=== PATIENT | male | born 1980 | race Caucasian/White ===

== ENCOUNTER 2016-10-13 13:56 | Emergency (ER) | payer MEDICAID, OTHER ==
[~2016-10-13] VITALS: Ht 175.3 cm; Wt 125.0 kg
[2016-10-13 16:49] VITALS: BP 149/95
== END 2016-10-13 19:07 | disposition home or self-care (01) ==
LOC: ER 16:46
DX: S93.402A Sprain of unspecified ligament of left ankle, initial encounter (principal); F17.210 Nicotine dependence, cigarettes, uncomplicated; Z71.6 Tobacco abuse counseling; X50.1XXA Overexertion from prolonged static or awkward postures, initial encounter; Y93.89 Activity, other specified; Y92.89 Other specified places as the place of occurrence of the external cause; Y99.8 Other external cause status
CPT/HCPCS: 73610; 99284; 99406

== ENCOUNTER 2017-12-10 11:49 | Emergency (ER) | payer MEDICAID, OTHER ==
[~2017-12-10] VITALS: Ht 172.7 cm; Wt 127.8 kg
[2017-12-10 12:30] VITALS: BP 147/93
[2017-12-10] MEDS ORDERED: FLUORESCEIN SODIUM 1MG/STRIP OP ONE (12:45)
[2017-12-10] MEDS ORDERED: TETRACAINE 0.5% OPHTH DROPS 4ML OP ONE (12:45)
== END 2017-12-10 15:33 | disposition home or self-care (01) ==
LOC: ER 13:00
DX: S00.11XA Contusion of right eyelid and periocular area, initial encounter (principal); F17.200 Nicotine dependence, unspecified, uncomplicated; W22.8XXA Striking against or struck by other objects, initial encounter; Y93.89 Activity, other specified; Y92.89 Other specified places as the place of occurrence of the external cause; Y99.8 Other external cause status; Z98.890 Other specified postprocedural states
CPT/HCPCS: 99283; X7700

== ENCOUNTER 2019-05-15 09:49 | Emergency (ER) | payer MEDICAID, OTHER ==
[~2019-05-15] VITALS: Ht 172.7 cm; Wt 120.0 kg
[2019-05-15 11:34] LABS: CLARITY URINE CLEAR (CLEAR); COLOR URINE YELLOW (YELLOW); KETONES URINE NEGATIVE (NEGATIVE); LEUKOCYTE ESTERASE URINE NEGATIVE (NEGATIVE); NITRITE URINE NEGATIVE (NEGATIVE); OCCULT BLOOD URINE NEGATIVE (NEGATIVE); PH URINE 5.5 (4.5-8.0); PROTEIN URINE NEGATIVE (NEGATIVE); SPECIFIC GRAVITY URINE 1.026 (1.005-1.030)
[2019-05-15 11:54] LABS: BASOPHILS % 0.6 % (0.0-2.0); EOSINOPHILS % 3.9 % (0.0-5.0); HEMOGLOBIN. 15.7 g/dL (14.0-18.0); MEAN CORPUSCULAR HEMOGLOBIN 31.7 pg (28.0-32.0); MEAN CORPUSCULAR VOLUME 92.9 fL (80.0-94.0); MEAN PLATELET VOLUME 9.5 fl (7.4-10.4); MONOCYTES % 4.8 % (2.0-8.0); NEUTROPHILS % 68.7 % (40.0-76.0); PLATELET 218 x1000/uL (130-400); RED BLOOD CELL COUNT 4.96 mill/uL (4.7-6.1)
[2019-05-15 11:57] LABS: INR 0.9; PROTHROMBIN TIME 10.1 sec (9.6-11.0)
[2019-05-15 12:08] LABS: CHLORIDE 107 mEq/L (98-107)
[2019-05-15] MEDS ORDERED: ACETAMINOPHEN 325MG TABLET PO ONE (12:30)
[2019-05-15] MEDS ORDERED: ONDANSETRON HCL 4MG TABLET PO ONE (12:30)
[2019-05-15 12:42] VITALS: BP 135/85
== END 2019-05-15 12:46 | disposition home or self-care (01) ==
LOC: ER 09:49
DX: R10.32 Left lower quadrant pain (principal); R03.0 Elevated blood-pressure reading, without diagnosis of hypertension
CPT/HCPCS: 36415; 74176; 80053; 81003; 83690; 85025; 85610; 99284; Q0162

== ENCOUNTER 2019-09-25 20:40 | Emergency (ER) | payer OTHER ==
[2019-09-25 21:00] VITALS: BP 162/86
== END 2019-09-25 22:43 | disposition home or self-care (01) ==
LOC: ER 20:47
DX: S70.362A Insect bite (nonvenomous), left thigh, initial encounter (principal); R03.0 Elevated blood-pressure reading, without diagnosis of hypertension; W57.XXXA Bitten or stung by nonvenomous insect and other nonvenomous arthropods, initial encounter; Y93.89 Activity, other specified; Y92.89 Other specified places as the place of occurrence of the external cause; F10.129 Alcohol abuse with intoxication, unspecified; Y90.9 Presence of alcohol in blood, level not specified
CPT/HCPCS: 99281